=== PATIENT | female | born 2000 | race Caucasian/White ===

== ENCOUNTER 2019-07-29 19:19 | Emergency (ER) | payer MEDICAID, OTHER ==
[~2019-07-29] VITALS: Ht 160 cm; Wt 75.7 kg
[2019-07-29 19:22] VITALS: BP 130/72
--- NOTE | 2019-07-29 19:22 | NUR ---
PT AMBULATED WITH STEADY GAIT FROM [facility] TO [facility]. ALER TO NAME, PLACE, TIME, AND EVENT.
--- NOTE | 2019-07-29 19:28 | NUR ---
PT AMBULTAED TO THE LOBBY WITH VSS.
--- NOTE | 2019-07-29 21:28 | NUR ---
WHEEL CHAIR ASSISTED FROM CT TO BED 12.
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
[2019-07-29] MEDS ORDERED: KETOROLAC 60 MG/2 ML VIAL IM ONE (22:05)
[2019-07-29] MEDS ORDERED: ONDANSETRON 4 MG ODT PO ONE (22:05)
--- NOTE | 2019-07-29 23:30 | NUR ---
Patient discharged with v/s stable. Written and verbal after care instructions given and explained BY DR RAMÍREZ. Patient alert, oriented and verbalized understanding of instructions. Ambulatory with steady gait. All questions addressed prior to discharge BY DR RAMÍREZ. ID band removed. Patient advised to follow up with PMD. Rx of NAPROSYN given. Patient educated on indication of medication including possible reaction and side effects BY DR RAMÍREZ. Opportunity to ask questions provided and answered BY DR. RAMÍREZ.
[2019-07-29 23:33] VITALS: BP 128/76
== END 2019-07-29 23:30 | disposition home or self-care (01) ==
LOC: MED 19:19
DX: S30.1XXA Contusion of abdominal wall, initial encounter (principal); J45.909 Unspecified asthma, uncomplicated; V89.2XXA Person injured in unspecified motor-vehicle accident, traffic, initial encounter; Y93.89 Activity, other specified; Y92.89 Other specified places as the place of occurrence of the external cause; Y99.8 Other external cause status
CPT/HCPCS: 74176; 81025; 96372; 99284; J1885; Q0162

== ENCOUNTER 2020-02-03 19:29 | Emergency (ER) | payer OTHER ==
[~2020-02-03] VITALS: Ht 160 cm; Wt 81.2 kg
[2020-02-03 19:34] VITALS: BP 95/49
[2020-02-03] MEDS ORDERED: ONDANSETRON 4 MG ODT PO ONE (20:05)
[2020-02-03] MEDS ORDERED: ALUMINUM HYD/MAG/SIMETHICONE 30 ML UDC PO ONE (20:15)
[2020-02-03] MEDS ORDERED: LIDOCAINE VISCOUS 2% 20 ML UDC PO ONE (20:15)
[2020-02-03] MEDS ORDERED: DICYCLOMINE HCL LIQUID 10 MG/5 ML UDC PO ONE (20:15)
[2020-02-03 20:45] VITALS: BP 121/72
== END 2020-02-03 20:45 | disposition home or self-care (01) ==
LOC: MED 19:29
DX: K29.70 Gastritis, unspecified, without bleeding (principal); J45.909 Unspecified asthma, uncomplicated
CPT/HCPCS: 81002; 81025; 99284; Q0162

== ENCOUNTER 2020-05-12 19:48 | Emergency (ER) | payer OTHER ==
[~2020-05-12] VITALS: Ht 160 cm; Wt 76.2 kg
[2020-05-12 19:52] VITALS: BP 120/77
[2020-05-12] MEDS ORDERED: DICYCLOMINE HCL LIQUID 20 MG, ALUMINUM HYD/MAG/SIMETHICONE 30 ML, LIDOCAINE VISCOUS 2% ... PO ONE ×3 (21:20)
[2020-05-12] MEDS ORDERED: ALUMINUM HYD/MAG/SIMETHICONE 30 ML UDC ONE (21:22)
[2020-05-12] MEDS ORDERED: LIDOCAINE VISCOUS 2% 20 ML UDC ONE (21:22)
[2020-05-12] MEDS ORDERED: DICYCLOMINE HCL LIQUID 10 MG/5 ML UDC ONE (21:22)
[2020-05-12 21:40] VITALS: BP 120/77
== END 2020-05-12 21:40 | disposition home or self-care (01) ==
LOC: MED 19:48
DX: R10.13 Epigastric pain (principal); J45.909 Unspecified asthma, uncomplicated
CPT/HCPCS: 81002; 81025; 99283

== ENCOUNTER 2022-02-26 21:19 | Inpatient (IN) | payer MEDICAID, OTHER ==
[~2022-02-26] VITALS: Ht 157.5 cm; Wt 84.4 kg
[2022-02-26 21:22] VITALS: BP 122/89
--- NOTE | 2022-02-26 22:06 | NUR ---
Blood for labwork drawn from left arm per golf course equipment operator. Patient tolerated well.
[2022-02-26 22:23] LABS: BASOPHILS # (AUTO) 0.1 K/uL (0.00-0.22); BASOPHILS % (AUTO) 0.7 % (0.0-2.0); EOSINOPHILS # (AUTO) 0.2 K/uL (0-0.4); HEMATOCRIT 38.1 % (36-48); HEMOGLOBIN 12.7 g/dL (12.0-16.0); LYMPHOCYTES # (AUTO) 3.9 K/uL (2.5-16.5); LYMPHOCYTES % (AUTO) 33.2 % (20.5-51.1); MEAN CORPUSCULAR HEMOGLOBIN 31 pg (27-31); MEAN CORPUSCULAR HGB CONC 33 g/dL (33-37); MEAN CORPUSCULAR VOLUME 92.6 fL (80-94); MONOCYTES # (AUTO) 0.7 K/uL (0.8-1.0); MONOCYTES % (AUTO) 6.3 % (1.7-9.3); NEUTROPHILS # (AUTO) 6.7 K/uL (1.8-7.7); NEUTROPHILS % (AUTO) 57.8 % (42.2-75.2); PLATELET COUNT (AUTO) 320 K/uL (140-450); RED BLOOD CELL COUNT(AUTO) 4.12 MIL/uL (4.20-5.40); RED CELL DISTRIBUTION WIDTH 14.1 % (11.6-13.7); WHITE BLOOD COUNT (AUTO) 11.6 K/uL (4.8-10.8)
[2022-02-26 22:40] LABS: ALBUMIN 3.7 g/dL (3.4-5.0); ANION GAP 12.7 (8-16); CARBON DIOXIDE 24.8 mmol/L (21-32); CREATININE 0.6 mg/dL (0.6-1.3); POTASSIUM 3.5 mmol/L (3.5-5.1); TOTAL BILIRUBIN 0.2 mg/dL (0.0-1.0)
--- NOTE | 2022-02-26 23:37 | NUR ---
Patient returned from US and placed on bed 4.
--- NOTE | 2022-02-27 00:03 | NUR ---
PT BIB SELF WITH COMPLAINT OF VAGINAL BLEEDING FOR 1 DAY, STATES SHE NOTICED BLOOD CLOTS IN HER PAD WITH LOWER LEFT ABDOMINAL PAIN. PT SATES SHE HAS HAD IRREGULAR MENSTRUAL PERIODS AND HAS BEEN SEEN BY A SPECIALIST, CURRENTLY AWAITING FOR ABDOMINAL AND TRANSVAGINAL US RESULTS THAT WERE DONE PREVIOUSLY. PT STATES SHE HAD HER LMP 02/21/22 FOR ABOUT THREE DAYS AND THE BLEEDING RETURNED YESTERDAY. PMH: NONE MEDICATIONS: NONE
[2022-02-27] MEDS ORDERED: NACL 0.9% 1,000 ML IV ONE (00:40)
[2022-02-27] MEDS ORDERED: HYDROcodone/APAP 5/325 MG 1 TAB TAB PO PRN (01:00)
[2022-02-27] MEDS ORDERED: ONDANSETRON 4 MG/2 ML VIAL IVP PRN (01:00)
[2022-02-27] MEDS ORDERED: MORPHINE SULFATE 4 MG/ML SYR IVP PRN (01:00)
--- NOTE | 2022-02-27 02:40 | NUR ---
Patient will be admitted to care of DENZEL THAYER. Admited to [facility]. Will go to [facility]. Belongings list completed. Report to GONZALO.
[2022-02-27 03:00] VITALS: BP 112/64
--- NOTE | 2022-02-27 03:00 | NUR ---
RECEIVED PATIENT FROM ER. PATIENT ARRIVE TO THE UNIT VIA WHEELCHAIR ESCORTED BY ONE ER STAFF. AWAKE, ALERT AND VERBALLY RESPONSIVE. PATIENT WITH VAGINAL BLEEDING AND VERBALIZED OF MINIMAL PAIN OR DISCOMFORT ON ABDOMEN. PATIENT INDEPENDENTLY TRANSFER HERSELF FROM WHEELCHAIR TO THE BED WITH SUPERVISION OR ASSISTANCE NEEDED. PLACE PATIENT COMFORTABLY ON THE BED.
--- NOTE | 2022-02-27 06:00 | NUR ---
PATIENT SLEEP WELL, SHE DENIED OF PAIN. IV SITE ON RIGHT ARM AC INTACT AND PATENT. RUNNING NORMAL SALINE AT KVO.
--- NOTE | 2022-02-27 07:15 | NUR ---
ENDORSE TO DAY SHIFT NURSE FOR CONTINUITY OF CARE. PATIENT IS ON STABLE CONDITION.
--- NOTE | 2022-02-27 07:51 | NUR ---
received report from night nurse, pt is in bed , looks comfortable no sob [email or web address]
[2022-02-27] MEDS: metroNIDAZOLE 500 MG/NS PREMIX 100 ML IV SCH ×3 (08:00→21:54)
--- NOTE | 2022-02-27 08:06 | NUR ---
PATIENT HAS BEEN SCREENED AND CATEGORIZED LOW NUTRITION RISK. PATIENT WILL BE SEEN WITHIN 7 DAYS OF ADMISSION. 02/27/22-03/05/[address]
[2022-02-27] MEDS ORDERED: guaiFENesin DM 200/20 MG-10 ML 10 ML UDC PO PRN (08:10)
[2022-02-27] MEDS ORDERED: ZOLPIDEM 5 MG TAB PO PRN (08:10)
[2022-02-27] MEDS ORDERED: ACETAMINOPHEN 325 MG TAB PO PRN (08:10)
[2022-02-27] MEDS ORDERED: DOCUSATE SODIUM 100 MG GELCAP PO PRN (08:10)
[2022-02-27] MEDS ORDERED: POTASSIUM CHLORIDE 10 MEQ TABER PO PRN (08:10)
--- NOTE | 2022-02-27 09:35 | NUR ---
got report pt in regular diet, but there is order entered at 0808 for NPO, pt ate half of breakfast then, notified the DR and put NPO wilver and notified patient not to eat.[email or web address]
[2022-02-27] MEDS: DEXT 5% /NACL 0.9% 1,000 ML IV SCH ×2 (09:56→17:09)
[2022-02-27] MEDS: PANTOPRAZOLE 40 MG TABEC PO SCH (09:56)
[2022-02-27 10:21] VITALS: BP 105/56
[2022-02-27 10:22] VITALS: BP 105/56
[2022-02-27 10:24] LABS: PROTHROMBIN TIME 10.6 secs (10.8-13.4)
[2022-02-27 10:30] LABS: AMYLASE 41 U/L (25-115); FREE T4 (FREE THYROXINE) 0.82 ng/dL (0.76-1.46); LIPASE 75 U/L (73-393); MAGNESIUM 1.9 mg/dL (1.8-2.4); PHOSPHORUS 4.6 mg/dL (2.5-4.9); THYROID STIMULATING HORMONE 1.56 uIU/mL (0.34-3.74)
--- NOTE | 2022-02-27 14:08 | NUR ---
PATIENT HAD SPOT BLEEDING SINCE IN THE MORNING CONTINUED TO ASSESS AND CHECK FOR BLEEDING VIAL VAGINAL.[email or web address]
[2022-02-27 15:10] LABS: APPEARANCE,URINE CLEAR (CLEAR); BILIRUBIN,URINE NEGATIVE (NEGATIVE); BLOOD, URINE 3+ (NEGATIVE); COLOR,URINE YELLOW (YELLOW); LEUKOCYTE ESTERASE ,URINE NEGATIVE (NEGATIVE); NITRITE, URINE NEGATIVE (NEGATIVE); UGLUCOSE NEGATIVE (NEGATIVE)
--- NOTE | 2022-02-27 15:41 | NUR ---
PT IS IN BED, NO JOELLE OF DISCOMFORT, VISITOR AT BED SIDE, IV FLUID IS INFUSING ORDERED.[email or web address]
[2022-02-27 16:00] VITALS: BP 104/60
--- NOTE | 2022-02-27 16:40 | NUR ---
PATIENT REPORT THAT SHE JUST CHANGED PAD WITH FULL BLOOD. NO PAIN, IV MAINTAINED ORDERED, PROVIDED COMFORT MEASURES. [email or web address]
[2022-02-27 18:26] LABS: RBC,URINE 20-50 /HPF (0-5); WBC,URINE NONE SEEN /HPF (0-5)
[2022-02-27 19:02] LABS: BARBITURATE, URINE NEGATIVE ng/ml (NEG <=200); BENZODIAZEPINE, URINE NEGATIVE ng/mL (NEG <=200); CANNABINOID, URINE NEGATIVE ng/mL (NEG <=50); COCAINE, URINE NEGATIVE ng/mL (NEG <=300); OPIATE, URINE NEGATIVE ng/mL (NEG <=2000); PHENCYCLIDINE SCREEN,URINE NEGATIVE ng/mL (NEG <=25)
--- NOTE | 2022-02-27 19:15 | NUR ---
RECEIVED BEDSIDE REPORT FROM DAY SHIFT NURSE FOR CONTINUITY OF PATIENT CARE.
[2022-02-27 20:00] VITALS: BP 98/62
--- NOTE | 2022-02-27 21:00 | NUR ---
PATIENT WENT TO RESTROOM, SHE VERBALIZED NO BLEEDING.
[2022-02-27 22:13] LABS: CHOL/HDL RATIO 4.1 (1-4.5); HDL CHOLESTEROL 26 mg/dL (40-60); LDL (CALC) 69 mg/dL (60-100); TRIGLYCERIDES 60 mg/dL (30-150)
[2022-02-28] VITALS: BP 98/62
--- NOTE | 2022-02-28 00:15 | NUR ---
PATIENT ASLEEP BUT AROUSABLE ON STIMULI. PATIENT DENIES OF PAIN AND BLEEDING. IV FLUID D5NS IS INTACT AND PATENT.
[2022-02-28] MEDS: DEXT 5% /NACL 0.9% 1,000 ML IV SCH ×3 (00:50→16:56)
--- NOTE | 2022-02-28 02:30 | NUR ---
PATIENT USED RESTROOM, VERBALIZED OF MILD TOLERABLE PAIN. PATIENT STATED SLIGHT BLEEDING ON THE PAD AND NO NEED TO CHANGE.
[2022-02-28 04:00] VITALS: BP 102/58
--- NOTE | 2022-02-28 04:00 | NUR ---
PATIENT VERBALIZES OF PAIN ON BILATERAL ARMS, MORE DISCOMFORT ON THE ARM OF IV SIDE. IV SIDE INTACT AND PATENT, NO S/S OF INFECTION OR PHLEBITIS.
[2022-02-28] MEDS: metroNIDAZOLE 500 MG/NS PREMIX 100 ML IV SCH ×3 (05:00→20:23)
[2022-02-28 06:19] LABS: T4 (THYROXINE) 5.1 ug/dL (4.5-12.0)
[2022-02-28 07:00] LABS: BASOPHILS # (AUTO) 0.1 K/uL (0.00-0.22); BASOPHILS % (AUTO) 0.7 % (0.0-2.0); EOSINOPHILS # (AUTO) 0.2 K/uL (0-0.4); EOSINOPHILS % (AUTO) 2.1 % (0.0-4.0); HEMATOCRIT 30.6 % (36-48); HEMOGLOBIN 10.4 g/dL (12.0-16.0); LYMPHOCYTES # (AUTO) 3.1 K/uL (2.5-16.5); LYMPHOCYTES % (AUTO) 33.7 % (20.5-51.1); MEAN CORPUSCULAR HEMOGLOBIN 32 pg (27-31); MEAN CORPUSCULAR HGB CONC 34 g/dL (33-37); MEAN CORPUSCULAR VOLUME 94.6 fL (80-94); MONOCYTES # (AUTO) 0.6 K/uL (0.8-1.0); MONOCYTES % (AUTO) 6.3 % (1.7-9.3); NEUTROPHILS # (AUTO) 5.2 K/uL (1.8-7.7); NEUTROPHILS % (AUTO) 57.2 % (42.2-75.2); PLATELET COUNT (AUTO) 262 K/uL (140-450); RED BLOOD CELL COUNT(AUTO) 3.23 MIL/uL (4.20-5.40); RED CELL DISTRIBUTION WIDTH 14.3 % (11.6-13.7); WHITE BLOOD COUNT (AUTO) 9.1 K/uL (4.8-10.8)
[2022-02-28 07:07] LABS: ANION GAP 12.1 (8-16); CARBON DIOXIDE 24.3 mmol/L (21-32); CREATININE 0.6 mg/dL (0.6-1.3); POTASSIUM 3.4 mmol/L (3.5-5.1)
--- NOTE | 2022-02-28 07:15 | NUR ---
PT ASLEEP, ENDORSED TO DAY SHIFT NURSE FOR PT CONTINUITY OF CARE. PATIENT IS ON NPO, RUNNING IVF OF D5NS VIA RIGHT ANTECUBITAL.
--- NOTE | 2022-02-28 07:20 | NUR ---
RECEIVED BEDSIDE REPORT FROM DECKHAND ENGINEER NURSE FOR CONTINUITY OF CARE. PT IS AWAKE AND ALERT. A&OX4. ON RA WITH BREATHING UNLABORED. AMBULATORY INDEPENDENTLY. DENIES PAIN AT THIS TIME. SKIN IS WARM, DRY, AND INTACT. IV IS IN PLACE INFUSING FLUIDS ORDERED. PT IS STABLE. PLAN OF CARE DISCUSSED.
[2022-02-28] MEDS ORDERED: MORPHINE SULFATE 2 MG/ML SYR IVP PRN (07:25)
[2022-02-28 08:00] VITALS: BP 102/67
[2022-02-28] MEDS: PANTOPRAZOLE 40 MG TABEC PO SCH (08:41)
--- NOTE | 2022-02-28 08:41 | NUR ---
PT WAS GIVEN KDUR 40 MEQ FOR POTASSIUM LEVEL OF 3.4. EDUCATION PROVIDED AND PT VERBALIZED UNDERSTANDING.
--- NOTE | 2022-02-28 09:14 | NUR ---
RESIDENT OF DR. MARTIN PRESENT AT BEDSIDE, ASSESSING PT. SHE STATED THEY WILL WAIT FOR DR. MARTIN TO SEE THE PT LATER TODAY TO DECIDE THE PLAN.
--- NOTE | 2022-02-28 10:00 | NUR ---
PT IS AWAKE AND ALERT. PT STATES SHE HAS PAIN IN THE ABD AT A SCALE OF 3/10 BUT SAYS IT IS TOLERABLE. BREATHING IS UNLABORED ON RA. WILL CONTINUE TO MONITOR.
[2022-02-28] MEDS: HYDROcodone/APAP 7.5/325 MG 1 TAB PO PRN ×3 (12:55→22:16)
--- NOTE | 2022-02-28 12:55 | NUR ---
PT STATES SHE HAS PAIN IN HER ARMS BILATERALLY AND ABD AT A SCALE OF 6/10. PT WAS GIVEN NORCO FOR PAIN. WILL CONTINUE TO MONITOR.
--- NOTE | 2022-02-28 15:08 | NUR ---
DC PLANNIN YRS OLD FEMALE PATIENT WAS ADMITTED FROM HOME WITH A DX OF ECTOPIC . PATIENT HAS NO MEDICAL HISTORY. TRANSVAGINAL US SHOWED CERVICAL ECTOPIC . ADMINISTERED IVF, AND IV PAIN MEDS CONSULTED WITH DR NUÑEZ QUALITY ASSURANCE SUPERVISOR TRIM. DC PLAN TO GO HOME WHEN STABLE. CM TO FOLLOW
--- NOTE | 2022-02-28 15:28 | NUR ---
PT IS ASLEEP. CHEST RISE AND FALL SYMMETRICAL. IV IS PATENT AND INFUSING. NO DISTRESS AT THIS TIME. PT STABLE.
--- NOTE | 2022-02-28 15:30 | NUR ---
DC PLANNING PATIENT IS A 21-YEAR-OLD FEMALE ADMITTED ON 03/14/22 AT [facility]/ER DUE TO COMPLAINTS OF UNUSUAL VAGINAL BLEEDING,NAUSEA AND VOMITING. SW MET WITH PATIENT AT BEDSIDE TO DISCUSS AND GATHER PATIENT'S COLLATERAL INFORMATION. PATIENT REPORTED LIVING AT HOME WITH HER FRIEND AND STATED HAVING PLENTY OF SUPPORT FROM HER FAMILY. PATIENT REPORTED BEEN ACTIVE AND INDEPENDENT AT HOME. PATIENT REPORTED THAT HER EMERGENCY CONTACT AND MEDICAL DECISION MAKER IS HER MOTHER ALLY WARREN . PATIENT STATED NOT HAVING ADVANCE DIRECTIVES AND WAS NOT INTERESTED ON GETTING INFORMATION FORMS PROVIDED BY SW AT THE TIME OF VISIT. PATIENT REPORTED NOT HAVING OR NEEDING DME AND NOT HAVING ANY ISSUES WITH GETTING OR TAKING ANY MEDICATIONS. PATIENT STATED THAT SHE WILL HAVE PRESCRIPTION MEDICATIONS BE SEND IF SHE NEEDS THEM TO HER [facility] IN [place]. SW EXPLAINED TO PATIENT THE NEED TO FOLLOW UP WITH AN APPOINTMENT WITH-IN 5-7 DAYS WITH HER PCP AFTER DISCHARGE FROM [facility]. PATIENT AGREED AND STATED THAT SHE DID NOT HAVE INSURANCE AT THE MOMENT BUT WILL BE APPLYING FOR MEDI-ANETTE AND WILL GO TO HER DOCTOR. SW PROVIDED PATIENT WITH RESOURCES TO EMERGENCY RESOURCES WITH INFORMATION FOR DPSS, AND A LIST OF LOW INCOME CLINICS IN HER AREA FOR PATIENT TO FOLLOW UP WITH AN APPOINTMENT AFTER SHE DISCHARGES FROM [facility]. PATIENT STATED THAT HER MOTHER WILL BE ASSISTING WITH TRANSPORTATION BACK HOME WHEN SHE IS READY FOR DISCHARGE. SW WILL FOLLOW UP WITH PATIENT NEEDED.
[2022-02-28 16:00] VITALS: BP 110/57
--- NOTE | 2022-02-28 18:02 | NUR ---
PT IS SLEEPING. NO DISTRESS NOTED. CHEST RISE AND FALL SYMMETRICAL. PT STABLE.
[2022-02-28] MEDS: ONDANSETRON 4 MG/2 ML VIAL IM/IVP PRN ×2 (18:15→22:16)
--- NOTE | 2022-02-28 18:15 | NUR ---
PT STATES SHE HAS PAIN IN HER LOWER ABD AT A SCALE OF 6/10. PT WAS GIVEN NORCO FOR PAIN. PT WAS ALSO GIVEN ZOFRAN FOR NAUSEA STATED BY PT. WILL MONITOR.
--- NOTE | 2022-02-28 19:30 | NUR ---
ENDORSED PT TO SCROLL ASSEMBLER NURSE FOR CONTINUITY OF CARE. PT IS STABLE. PLAN OF CARE DISCUSSED.
--- NOTE | 2022-02-28 19:36 | NUR ---
RECEIVED BEDSIDE REPORT FROM DAY SHIFT RN FOR CONTINUITY OF CARE. PT IS AWAKE. NOT IN ANY DISTRESS. PT IS AAOX4. PT HAS RIGHT HAND 22 GAUGE WITH D5 NS 120 ML/HR. PT IS ON RA BREATHING EVEN AND UNLABORED. CALL LIGHT WITHIN REACH. ALL SAFETY MEASURES TAKEN. WILL CONTINUE TO MONITOR THE PT.
--- NOTE | 2022-02-28 20:25 | NUR ---
ALL DUE MEDS GIVEN. NO ADVERSE REACTION NOTED. WILL CONTINUE TO MONITOR THE PT.
--- NOTE | 2022-03-01 00:17 | NUR ---
PT COMPLAINING OF ARM PAIN 05/01. PT WANTED MORPHINE AND WAS GIVEN PER MD ORDER. NO ADVERSE EFFECT NOTED. ALL SAFETY PRECAUTIONS TAKEN. WILL CONTINUE TO MONITOR THE PT.
[2022-03-01] MEDS: DEXT 5% /NACL 0.9% 1,000 ML IV SCH ×4 (01:50→21:20)
--- NOTE | 2022-03-01 03:31 | NUR ---
PT IS SLEEPING COMFORTABLY IN BED. PT IS NOT IN ANY DISTRESS. BREATHING EVEN AND UNLABORED. CALL LIGHT WITHIN REACH. ALL SAFETY MEASURES TAKEN. WILL CONTINUE TO MONITOR THE PT.
[2022-03-01 04:00] VITALS: BP 100/62
[2022-03-01] MEDS: metroNIDAZOLE 500 MG/NS PREMIX 100 ML IV SCH ×3 (04:51→21:20)
--- NOTE | 2022-03-01 06:04 | NUR ---
PT IS SLEEPING COMFORTABLY IN BED. PT IS NOT IN ANY DISTRESS. BREATHING EVEN AND UNLABORED. IVF RUNNING PER MD ORDER. CALL LIGHT WITHIN REACH. ALL SAFETY MEASURES TAKEN. WILL CONTINUE TO MONITOR THE PT.
[2022-03-01 06:53] LABS: BASOPHILS % (AUTO) 0.5 % (0.0-2.0); EOSINOPHILS # (AUTO) 0.1 K/uL (0-0.4); EOSINOPHILS % (AUTO) 1.6 % (0.0-4.0); HEMATOCRIT 29.5 % (36-48); LYMPHOCYTES # (AUTO) 2.3 K/uL (2.5-16.5); LYMPHOCYTES % (AUTO) 28.8 % (20.5-51.1); MEAN CORPUSCULAR HEMOGLOBIN 32 pg (27-31); MEAN CORPUSCULAR HGB CONC 34 g/dL (33-37); MEAN CORPUSCULAR VOLUME 93.9 fL (80-94); MONOCYTES # (AUTO) 0.4 K/uL (0.8-1.0); MONOCYTES % (AUTO) 5.4 % (1.7-9.3); NEUTROPHILS # (AUTO) 5.2 K/uL (1.8-7.7); NEUTROPHILS % (AUTO) 63.7 % (42.2-75.2); PLATELET COUNT (AUTO) 193 K/uL (140-450); RED BLOOD CELL COUNT(AUTO) 3.14 MIL/uL (4.20-5.40); WHITE BLOOD COUNT (AUTO) 8.1 K/uL (4.8-10.8)
[2022-03-01 06:54] LABS: ANION GAP 9.9 (8-16); CARBON DIOXIDE 24.5 mmol/L (21-32); CREATININE 0.5 mg/dL (0.6-1.3); POTASSIUM 4.4 mmol/L (3.5-5.1)
--- NOTE | 2022-03-01 07:15 | NUR ---
RECEIVED BEDSIDE REPORT FROM RECYCLING PROGRAM MANAGER NURSE FOR CONTINUITY OF CARE. PT IS AWAKE AND ALERT. ON RA WITH BREATHING UNLABORED. AMBULATORY INDEPENDENTLY. SKIN IS WARM, DRY, AND INTACT. RIGHT HAND 22 GAUGE INFUSING FLUIDS. PT IS STABLE. PLAN OF CARE DISCUSSED.
--- NOTE | 2022-03-01 07:20 | NUR ---
ENDORSED PT TO DAY SHIFT RN FOR CONTINUITY OF CARE. ALL NEEDS MET. PT IS STABLE.
[2022-03-01 08:00] VITALS: BP 98/51
--- NOTE | 2022-03-01 08:21 | NUR ---
RECEIVED VERBAL ORDER FROM DR. HAN TO PLACE PT ON REGULAR DIET THERE WILL NO PROCEDURE SCHEDULED OF RIGHT NOW PER DR. MARTIN.
[2022-03-01] MEDS: HYDROcodone/APAP 7.5/325 MG 1 TAB PO PRN (08:29)
[2022-03-01] MEDS: PANTOPRAZOLE 40 MG TABEC PO SCH (08:29)
--- NOTE | 2022-03-01 10:48 | NUR ---
ROUNDED ON PT. SHE IS ASLEEP. NO DISTRESS NOTED. CHEST RISE AND FALL SYMMETRICAL. IV FLUID BAG CHANGED AND NO INFILTRATION IN IV NOTED.
--- NOTE | 2022-03-01 13:00 | NUR ---
PT IS AWAKE AND ALERT. DENIES ANY NAUSEA OR PAIN. PT ATE LUNCH AND TOLERATED IT WELL. NO DISTRESS NOTED.
--- NOTE | 2022-03-01 13:59 | NUR ---
MESSAGED DR. MATRIN INQUIRING ABOUT THE METHOTREXATE HE PREVIOUSLY MENTIONED HE WANTED TO START TODAY 03/01/22 ON SHIFT CHANGE AT BEDSIDE WITH THE PATIENT AND ME, NURSE. WILL WAIT FOR RESPONSE BACK. Addendum: 03/01/22 at 1401 by Sana Multani RN NO CURRENT MEDICATION ORDER FOR METHOTREXATE NOTED.
--- NOTE | 2022-03-01 14:44 | NUR ---
DR. MARTIN MESSAGED BACK TO ASK DR. HAN TO CALL HIM. PROVIDED THE PHONE NUMBER TO DR. HAN AND ASKED HIM TO CALL DR. MARTIN.
[2022-03-01 16:00] VITALS: BP 109/66
--- NOTE | 2022-03-01 16:08 | NUR ---
PT IS AWAKE AND STABLE. DENIES ANY PAIN AT THIS TIME. SITTING UP IN BED WITH NO DISTRESS. BREATHING IS UNLABORED ON RA. IV IS PATENT AND INTACT.
--- NOTE | 2022-03-01 18:56 | NUR ---
PT IS STABLE. NO DISTRESS AT THIS TIME. SITTING UP IN BED WITH NO PAIN OR RESP. DISTRESS. WILL ENDORSE TO SPOOLING SUPERVISOR NURSE FOR CONTINUITY OF CARE.
--- NOTE | 2022-03-01 19:10 | NUR ---
RECEIVED REPORT FROM AM NURSE FOR CONTINUITY OF CARE. PT SITTING UP IN BED RR EVEN AND UNLABORED WITH EQUAL CHEST RISE. C/O N/V NO EMESIS NOTED. ZOFRAN 4MG/2ML IVP GIVEN WITH RELIEF. SKIN INTACT. IV R HAND 22G PATENT. FLAGYL INFUSED WITHOUT PROBLEMS. ALL SAFETY MEASURES IN PLACE. WILL CONTINUE TO MONITOR.
[2022-03-01] MEDS: ONDANSETRON 4 MG/2 ML VIAL IM/IVP PRN (19:42)
--- NOTE | 2022-03-02 02:00 | NUR ---
PT SLEPT FITFULLY. C/O INSOMNIA. RECEIVED AMBIEN 5MG PO FOR INSOMNIA. EFFECTIVE, SLEEPING AFTER 15 MINUTES.
--- NOTE | 2022-03-02 02:11 | NUR ---
DR. MARTIN ORDERED PELVIC ULTRASOUND NON OB FOR VAGINAL BLEEDING FOR 03/02/2022. PT WILL BE KEPT NPO UNTIL AFTER TEST. PT AWARE AND VERBALIZED UNDERSTANDING.
[2022-03-02 04:00] VITALS: BP 112/68
[2022-03-02] MEDS: metroNIDAZOLE 500 MG/NS PREMIX 100 ML IV SCH ×2 (04:19→13:00)
[2022-03-02 06:50] LABS: BASOPHILS % (AUTO) 0.6 % (0.0-2.0); EOSINOPHILS # (AUTO) 0.1 K/uL (0-0.4); EOSINOPHILS % (AUTO) 1.5 % (0.0-4.0); HEMATOCRIT 26.9 % (36-48); HEMOGLOBIN 9.1 g/dL (12.0-16.0); LYMPHOCYTES # (AUTO) 2.7 K/uL (2.5-16.5); MEAN CORPUSCULAR HEMOGLOBIN 32 pg (27-31); MEAN CORPUSCULAR HGB CONC 34 g/dL (33-37); MEAN CORPUSCULAR VOLUME 93.5 fL (80-94); MONOCYTES # (AUTO) 0.6 K/uL (0.8-1.0); MONOCYTES % (AUTO) 6.8 % (1.7-9.3); NEUTROPHILS # (AUTO) 5.3 K/uL (1.8-7.7); NEUTROPHILS % (AUTO) 60.1 % (42.2-75.2); PLATELET COUNT (AUTO) 258 K/uL (140-450); RED BLOOD CELL COUNT(AUTO) 2.87 MIL/uL (4.20-5.40); RED CELL DISTRIBUTION WIDTH 14.3 % (11.6-13.7); WHITE BLOOD COUNT (AUTO) 8.8 K/uL (4.8-10.8)
[2022-03-02 07:01] LABS: ANION GAP 9.2 (8-16); CARBON DIOXIDE 26.5 mmol/L (21-32); CREATININE 0.6 mg/dL (0.6-1.3); POTASSIUM 3.7 mmol/L (3.5-5.1)
--- NOTE | 2022-03-02 07:30 | NUR ---
ENDORSED REPORT TO AM RN FOR CONTINUITY OF CARE. PT IS STABLE.
--- NOTE | 2022-03-02 07:55 | NUR ---
RECEIVED REPORT FROM NIGHT NURSE PT IN BED RESTING IV FLUID INFUSING.[id number]
[2022-03-02 08:00] VITALS: BP 149/90
[2022-03-02] MEDS: PANTOPRAZOLE 40 MG TABEC PO SCH (09:51)
[2022-03-02] MEDS: DEXT 5% /NACL 0.9% 1,000 ML IV SCH (11:23)
[2022-03-02] MEDS ORDERED: MISOPROSTOL 200 MCG TAB PO SCH (13:00)
[2022-03-02] MEDS: HYDROcodone/APAP 7.5/325 MG 1 TAB PO PRN (15:21)
[2022-03-02 16:42] VITALS: BP 133/79
--- NOTE | 2022-03-02 18:36 | NUR ---
PT DISCHARGED HOME, DISCHARGE INSTRUCTION GIVEN, IV AND ID BAND REMOVED, ESCORTED TO THE CAR BY Kyle HUSTON
== END 2022-03-02 18:30 | disposition home or self-care (01) | DRG 566 ==
LOC: MED 21:19 → MMU 02-27 01:02 → MTU 02-27 01:42
PROVIDERS: ADMIT Hospitalist; ATTEND Hospitalist
PROC: 10A07ZX Abortion of Products of Conception, Abortifacient, Via Natural or Artificial Opening (ICD-10-PCS; principal; 2022-02-28)
DX: O00.80 Other ectopic pregnancy without intrauterine pregnancy (principal); E87.8 Other disorders of electrolyte and fluid balance, not elsewhere classified; D62 Acute posthemorrhagic anemia; O99.281 Endocrine, nutritional and metabolic diseases complicating pregnancy, first trimester; O99.611 Diseases of the digestive system complicating pregnancy, first trimester; Z20.822 Contact with and (suspected) exposure to COVID-19; Z3A.01 Less than 8 weeks gestation of pregnancy
CPT/HCPCS: 36415; 71045; 76817; 80048; 80053; 80305; 81001; 82150; 83036; 83690; 83735; 83880; 84100; 84436; 84439; 84443; 84479; 84484; 84702; 85025; 85610; 85730; 86870; 86886; 86900; 86901; 87081; 93971; 96360; 99291; J2270; J2405; J3490; J7030; Q0092

== ENCOUNTER 2022-03-11 14:37 | Observation (INO) | payer MEDICAID ==
[~2022-03-11] VITALS: Ht 208.3 cm; Wt 82.6 kg
[2022-03-11 14:42] VITALS: BP 113/67
--- NOTE | 2022-03-11 15:30 | NUR ---
21 y/o female bib self from home, pt was sent from OBGYN office for possible admission for d&c. pt was admitted to hospital on 03/02/22 for ectopic and given cytotec. pt c/o moderate vaginal bleeding that started on 02/27/22 and still bleeding at this time, denies clots. skin is pink/warm/dry. a&o x4 with even and steady gait. lungs clear bl, heart rate even and regular. pt denies dysuria, hematuria, urinary frequency or retention. pt denies any fever, cp, sob, or cough at this time. pt states pain is 6/10 at this time. vss. patient positioned for comfort. hob elevated. bed down. ermd made aware of pt. lmp: 02/21/22 pmh: asthma nka
--- NOTE | 2022-03-11 15:39 | NUR ---
labs at bedside
[2022-03-11 15:53] LABS: BASOPHILS % (AUTO) 0.4 % (0.0-2.0); EOSINOPHILS # (AUTO) 0.1 K/uL (0-0.4); EOSINOPHILS % (AUTO) 1.9 % (0.0-4.0); HEMATOCRIT 24.8 % (36-48); HEMOGLOBIN 8.3 g/dL (12.0-16.0); LYMPHOCYTES # (AUTO) 1.9 K/uL (2.5-16.5); LYMPHOCYTES % (AUTO) 26.4 % (20.5-51.1); MEAN CORPUSCULAR HEMOGLOBIN 31 pg (27-31); MEAN CORPUSCULAR HGB CONC 33 g/dL (33-37); MEAN CORPUSCULAR VOLUME 92.1 fL (80-94); MONOCYTES # (AUTO) 0.4 K/uL (0.8-1.0); MONOCYTES % (AUTO) 5.8 % (1.7-9.3); NEUTROPHILS # (AUTO) 4.7 K/uL (1.8-7.7); NEUTROPHILS % (AUTO) 65.5 % (42.2-75.2); PLATELET COUNT (AUTO) 411 K/uL (140-450); RED BLOOD CELL COUNT(AUTO) 2.69 MIL/uL (4.20-5.40); RED CELL DISTRIBUTION WIDTH 14.3 % (11.6-13.7); WHITE BLOOD COUNT (AUTO) 7.2 K/uL (4.8-10.8)
[2022-03-11 16:01] LABS: BILIRUBIN,URINE 2+ (NEGATIVE); BLOOD, URINE 3+ (NEGATIVE); LEUKOCYTE ESTERASE ,URINE 2+ (NEGATIVE); NITRITE, URINE NEGATIVE (NEGATIVE); UGLUCOSE NEGATIVE (NEGATIVE)
[2022-03-11 16:08] LABS: APPEARANCE,URINE BLOODY (CLEAR); COLOR,URINE RED (YELLOW); RBC,URINE TOO NUMEROUS TO COUN /HPF (0-5)
[2022-03-11 16:16] LABS: ALBUMIN 3.5 g/dL (3.4-5.0); ANION GAP 8.1 (8-16); CARBON DIOXIDE 27.9 mmol/L (21-32); CREATININE 0.6 mg/dL (0.6-1.3); TOTAL BILIRUBIN 0.2 mg/dL (0.0-1.0)
--- NOTE | 2022-03-11 16:19 | NUR ---
Ultrasound at bedside.
--- NOTE | 2022-03-11 17:32 | NUR ---
Patient appears to be resting comfortably in bed. Vital Signs within normal limits. Respirations even and unlabored.
--- NOTE | 2022-03-11 18:27 | NUR ---
neema swabbed at this time
--- NOTE | 2022-03-11 18:32 | NUR ---
NPO AFTER 9 PM TONIGHT. SURGERY SCHEDULED AT 630 AM 03/12/[address] SINGH/NETTIE SUP
[2022-03-11] MEDS ORDERED: LACTATED RINGERS 1,000 ML IV STA (18:34)
[2022-03-11 19:21] LABS: PROTHROMBIN TIME 10.6 secs (10.8-13.4)
--- NOTE | 2022-03-11 21:02 | NUR ---
EXPLOSIVE ORDNANCE DISPOSAL TECHNICIAN AT BEDSIDE
--- NOTE | 2022-03-11 21:25 | NUR ---
RECEIVED REPORT FROM ER. PATIENT ALERT ORIENTED X4. CAN VERBALIZE NEEDS AND WANTS. PATIENT IS AMBULATOR. IV ON RIGHT A/C PATENT, CLEAN AND INTACT. DENIES ANY PAIN/DISCOMFORT. PATIENT REQUESTED FOR A SLEEP PILL TO SLEEP BECAUSE OF AM PROCEDURE. NURSING WILL NOTIFY THE MD FOR ORDERS. ORIENTED TO ROOM AND HOSPITAL POLICIES. PATIENT WAS ABLE TO SIGN CONSENT FOR PROCEDURE TOMORROW AND THIS WILL BE ENDORSED TO AM SHIFT NURSE. PATIENT ON ROOM AIR WITH NO NOTED DIFFICULTIES BREATHING. CHEST RISING AND FALLING EVENLY. SIDE RAILS UP X 2 FOR SELF ADJUSTMENT. CALL LIGHT WITHIN REACH FOR ASSISTANCE AND NEEDS. PATIENT UNDERSTOOD ALL INSTRUCTIONS AND EDUCATION WELL. [email or web address]
--- NOTE | 2022-03-11 21:25 | NUR ---
Patient will be admitted to care of DR KHAN. Admited to Med/Surg. Will go to room 104B. Belongings list completed. Report to MODESTA PITTMAN.
[2022-03-11] MEDS ORDERED: ZOLPIDEM 5 MG TAB PO PRN (22:15)
--- NOTE | 2022-03-12 00:25 | NUR ---
MRSA NARES COLLECTED FOR LAB. PATIENT WENT BACK TO SLEEP AFTER COLLECTION. DENIES ANY PAIN/DISCOMFORT. SIDE RAILS UP X 2. BED AT ITS LOWEST POSITION. CALL LIGHT WITHIN REACH FOR ANY AND ALL ASSISTANCE. [email or web address]
[2022-03-12 01:09] VITALS: BP 102/55
--- NOTE | 2022-03-12 03:25 | NUR ---
PATIENT REMAINS ASLEEP IN BED. BED AT THE LOWEST LEVEL WITH SIDE RAILS X 2 FOR ADJUSTMENT. NO NOTED ACUTE DISTRESS OF RESPIRATORY. NO NOTED S/SX OF ACUTE PAIN/DISCOMFORT. CALL LIGHT WITHIN REACH FOR ALL NEEDS AND SUPPORT. [email or web address]
[2022-03-12 04:00] VITALS: BP 90/47
--- NOTE | 2022-03-12 06:41 | NUR ---
MEDICAL FRONT DESK COORDINATOR CAME FOR THE CONSENT. PATIENT ALREADY PREPPED FOR THE PROCEDURE. YESTERDAY DURING ADMISSION PATIENT STATED SHE PASSED ABOUT THREE CLOTS. THIS WAS ENDORSED TO THE SURGICAL NURSES. PATIENT WIPED HER WASHED HER LOWER EXTREMITY WITH CHLORA-PREP BEFORE THE PROCEDURE. PATIENT WAS TRANSFERRED OFF THE UNIT TO SURGERY. [email or web address].
--- NOTE | 2022-03-12 07:09 | NUR ---
ENDORSED TO SIMA BYERS FOR CONTINUITY OF CARE, PATIENT WAS TRANSFERRED TO SURGERY FOR PROCEDURE OD DILATION AND CURETTAGE. [email or web address]
[2022-03-12] MEDS ORDERED: fentaNYL citrate 0.05 MG/ML VIAL ONE (07:11)
[2022-03-12] MEDS ORDERED: PROPOFOL 200 MG/20 ML VIAL IV ONE (07:12)
[2022-03-12] MEDS ORDERED: ONDANSETRON 4 MG/2 ML VIAL ONE (07:26)
[2022-03-12] MEDS ORDERED: DEXAMETHASONE 4 MG/ML VIAL ONE (07:27)
--- NOTE | 2022-03-12 08:00 | NUR ---
PT IS STABLE, COVERING IV MED ORDER FOR INSURANCE OFFICE SUPERVISOR NARESH [id number]
[2022-03-12] MEDS: DOXYCYCLINE 200 MG in DEXTROSE 5% 250 ML IV SCH ×2 (08:10→08:30)
[2022-03-12] MEDS ORDERED: ONDANSETRON 4 MG/2 ML VIAL IVP PRN ×2 (08:10)
[2022-03-12] MEDS ORDERED: HYDROmorphone 1 MG/ML AMP IVP PRN (08:10)
[2022-03-12] MEDS ORDERED: oxyCODONE/APAP 5/325 MG 1 TAB TAB PO PRN (08:10)
[2022-03-12] MEDS ORDERED: diphenhydrAMINE 50 MG/ML VIAL IVP PRN ×2 (08:10)
[2022-03-12] MEDS ORDERED: MEPERIDINE 25 MG/ML SYR IVP PRN (08:10)
[2022-03-12] MEDS ORDERED: LACTATED RINGERS 1,000 ML IV SCH (08:10)
--- NOTE | 2022-03-12 09:12 | NUR ---
PATIENT HAS BEEN SCREENED AND CATEGORIZED LOW NUTRITION RISK. PATIENT WILL BE SEEN WITHIN 7 DAYS OF ADMISSION. 03/18/[address]
[2022-03-12 12:54] VITALS: BP 90/47
--- NOTE | 2022-03-12 12:54 | NUR ---
PT DISCHARGED HOME, IV LINE AND ID BAND REMOVED, PT LEFT THE UNIT WITHOUT DISCOMFORT VIA W\C .[email or web address]
== END 2022-03-12 16:08 | disposition home or self-care (01) ==
LOC: MED 14:37 → MTU 18:20
PROVIDERS: ADMIT Obstetrics & Gynecology; ATTEND Obstetrics & Gynecology
DX: O03.4 Incomplete spontaneous abortion without complication (principal); Z20.822 Contact with and (suspected) exposure to COVID-19; J45.909 Unspecified asthma, uncomplicated; Z67.90 Unspecified blood type, Rh positive
CPT/HCPCS: 36415; 59820; 71045; 76801; 80053; 81001; 84702; 85025; 85610; 85730; 86870; 86886; 86900; 86901; 87086; 87426; 99285; G0378; J1100; J2405; J2704; J3010; J3490; J7060; Q0092; 88305; G0379

== ENCOUNTER 2022-03-17 10:08 | Emergency (ER) | payer MEDICAID ==
[~2022-03-17] VITALS: Ht 157.5 cm; Wt 82.1 kg
[2022-03-17 10:14] VITALS: BP 121/76
--- NOTE | 2022-03-17 10:17 | NUR ---
PT AMBULATED TO BED 7 WITH STEADY GAIT
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
--- NOTE | 2022-03-17 10:39 | NUR ---
DR WEIR AT BEDSIDE FOR FURTHER EVAL
--- NOTE | 2022-03-17 10:48 | NUR ---
PT STATES THAT SHE "FEELS LIKE THERE IS WATER IN HER EAR" AND THAT SHE IS "UNDERWATER". STATES SLIGHT LOSS OF HEARING ON THE RIGHT EAR.
[2022-03-17] MEDS ORDERED: CIPR7.5S OT (11:01)
--- NOTE | 2022-03-17 11:10 | NUR ---
Patient discharged with v/s stable. Written and verbal after care instructions about otitis externa given and explained. Patient alert, oriented and verbalized understanding of instructions. Ambulatory with steady gait. All questions addressed prior to discharge. ID band removed. Patient advised to follow up with PMD. Rx of CIPRODEX OTIC SUSPENSION given. Patient educated on indication of medication including possible reaction and side effects. Opportunity to ask questions provided and answered.
--- NOTE | 2022-03-17 11:15 | NUR ---
The patient's care was reviewed and supervised by Tushar De Oliveira RN.
== END 2022-03-17 11:10 | disposition home or self-care (01) ==
LOC: MED 10:08
DX: H60.91 Unspecified otitis externa, right ear (principal)
CPT/HCPCS: 99283

== ENCOUNTER 2022-05-18 14:25 | Emergency (ER) | payer MEDICAID, OTHER ==
[~2022-05-18] VITALS: Ht 157.5 cm; Wt 83.5 kg
[~2022-05-18 14:25] MED LIST: CIPR7.5S OT
[2022-05-18 14:54] VITALS: BP 137/86
--- NOTE | 2022-05-18 15:02 | NUR ---
PT AMB TO BED 10
--- NOTE | 2022-05-18 15:05 | NUR ---
COVID ROBBY SWAB DONE.
--- NOTE | 2022-05-18 15:18 | NUR ---
EMT at bedside for EKG
--- NOTE | 2022-05-18 15:22 | NUR ---
RAD at bedside
--- NOTE | 2022-05-18 15:25 | NUR ---
21 y/o F BIB self from home c/o chest pain x 1 week, abdominal pain, nausea, dizziness, headache. Patient A&Ox4, ambulatory, states intermittent left and right sided chest pain 7/10, pressure/intermittent, non-radiating pain. Patient also states diffuse abdominal pain 6/10, tenderness noted to all quadrants. Patient states seen by PCP 2 days ago with abnormal CXR; seen at [facility] and discharged yesterday advising to hold Ibuprofen d/t gastritis. Patient reports PCP recently tested +COVID and concern d/t visit exposure. Denies fever, chills, vomiting, diarrhea, dysuria, SOB. respiratory clinician in place. Bed locked in lowest position, side rails x 1. PMH: gastritis Meds: denies NKDA Sx: D&C
[2022-05-18] MEDS ORDERED: NACL 0.9% 1,000 ML IV ONE (16:20)
[2022-05-18] MEDS ORDERED: ACETAMINOPHEN 325 MG TAB PO ONE (16:20)
--- NOTE | 2022-05-18 17:05 | NUR ---
Patient states + relief to symptoms; headache 12/30 and chest pain "going away a little bit" 04/01. playground monitor remains in place with IVF continued. VSS; RR even/unlabored. Bed locked in lowest position, side rails x 1.
[2022-05-18 17:10] LABS: BASOPHILS % (AUTO) 0.5 % (0.0-2.0); EOSINOPHILS # (AUTO) 0.1 K/uL (0-0.4); EOSINOPHILS % (AUTO) 1.6 % (0.0-4.0); HEMATOCRIT 40.5 % (36-48); HEMOGLOBIN 13.2 g/dL (12.0-16.0); LYMPHOCYTES # (AUTO) 2.3 K/uL (2.5-16.5); LYMPHOCYTES % (AUTO) 27.9 % (20.5-51.1); MEAN CORPUSCULAR HEMOGLOBIN 30 pg (27-31); MEAN CORPUSCULAR HGB CONC 33 g/dL (33-37); MEAN CORPUSCULAR VOLUME 90.3 fL (80-94); MONOCYTES # (AUTO) 0.5 K/uL (0.8-1.0); NEUTROPHILS # (AUTO) 5.3 K/uL (1.8-7.7); PLATELET COUNT (AUTO) 344 K/uL (140-450); RED BLOOD CELL COUNT(AUTO) 4.48 MIL/uL (4.20-5.40); RED CELL DISTRIBUTION WIDTH 14.3 % (11.6-13.7); WHITE BLOOD COUNT (AUTO) 8.3 K/uL (4.8-10.8)
--- NOTE | 2022-05-18 17:18 | NUR ---
Patient ambulated to restroom with steady/even gait.
[2022-05-18 17:32] LABS: ALBUMIN 3.6 g/dL (3.4-5.0); ANION GAP 9.3 (8-16); ASPARTATE AMINOTRANSFERASE 19 U/L (15-37); CARBON DIOXIDE 30.4 mmol/L (21-32); CHLORIDE 107 mmol/L (98-107); CREATININE 0.8 mg/dL (0.6-1.3); GFR ARICAN-AMERICAN 114 mL/min (>90); GLUCOSE 90 mg/dL (74-106); POTASSIUM 3.7 mmol/L (3.5-5.1); SODIUM SERUM 143 mmol/L (136-145); TOTAL BILIRUBIN 0.1 mg/dL (0.0-1.0); UREA NITROGEN, BLOOD 14 mg/dL (7-18)
[2022-05-18] MEDS ORDERED: IBUP-2213 PO (18:06)
--- NOTE | 2022-05-18 19:15 | NUR ---
IV removed, catheter intact and site benign. Applied folded 4x4 gauze and tape to stop bleeding.
[2022-05-18 19:25] VITALS: BP 110/83
--- NOTE | 2022-05-18 19:27 | NUR ---
Patient discharged with v/s stable. Written and verbal after care instructions given and explained. Patient alert, oriented and verbalized understanding of instructions. Ambulatory with steady gait. All questions addressed prior to discharge. ID band removed. Patient advised to follow up with PMD. Rx of Ibuprofen given. Patient educated on indication of medication including possible reaction and side effects. Opportunity to ask questions provided and answered. Work note, blood work, EKG, and CXR copies provided to pt.
== END 2022-05-18 19:27 | disposition home or self-care (01) ==
LOC: MED 14:25
DX: R07.9 Chest pain, unspecified (principal); Z20.822 Contact with and (suspected) exposure to COVID-19; R50.9 Fever, unspecified; R06.00 Dyspnea, unspecified; J45.909 Unspecified asthma, uncomplicated; F17.200 Nicotine dependence, unspecified, uncomplicated; Z79.899 Other long term (current) drug therapy
CPT/HCPCS: 71045; 80053; 84484; 84702; 85025; 87426; 93005; 96360; 99285; J7030; Q0092

== ENCOUNTER 2022-10-26 15:02 | Emergency (ER) | payer OTHER ==
[~2022-10-26] VITALS: Ht 157.5 cm; Wt 84.4 kg
[~2022-10-26 15:02] MED LIST changes: +IBUP-2213 PO
[2022-10-26 15:10] VITALS: BP 119/80
--- NOTE | 2022-10-26 15:12 | NUR ---
PT AMBULATED TO LOBBY. URINE COLLECTED
--- NOTE | 2022-10-26 15:12 | NUR ---
22/F WALKED IN C/O MID PELVIC PAIN ONSET 2 DAYS. PT WAS SEEN AT URGENT CARE 2 WKS AGO FOR LEFT SIDED PELVIC PAIN. PT REPORTS DYSURIA AT THIS TIME. DENIES HEMATURIA OR FLANK PAIN. AFEBRILE AT TRIAGE. AAO4, AMBULATORY, VITALS STABLE PMH: DENIES
--- NOTE | 2022-10-26 17:10 | NUR ---
URINE COLLECTED AND SENT TO LAB
[2022-10-26 17:24] LABS: APPEARANCE,URINE CLOUDY (CLEAR); BILIRUBIN,URINE 1+ (NEGATIVE); BLOOD, URINE 3+ (NEGATIVE); COLOR,URINE YELLOW (YELLOW); LEUKOCYTE ESTERASE ,URINE 2+ (NEGATIVE); NITRITE, URINE NEGATIVE (NEGATIVE); UGLUCOSE NEGATIVE (NEGATIVE)
[2022-10-26 17:30] LABS: RBC,URINE 11-20 (MOD) /HPF (0-5); WBC,URINE 16-25 (MOD) /HPF (0-5)
[2022-10-26] MEDS ORDERED: CEPH-588 PO (18:32)
[2022-10-26] MEDS ORDERED: IBUP-2213 PO (18:32)
[2022-10-26] MEDS ORDERED: PYR100 PO (18:32)
[2022-10-26 18:40] VITALS: BP 124/75
== END 2022-10-26 18:40 | disposition home or self-care (01) ==
LOC: MED 15:02
DX: R30.0 Dysuria (principal); J45.909 Unspecified asthma, uncomplicated
CPT/HCPCS: 81001; 81025; 87086; 99283

== ENCOUNTER 2023-01-04 11:22 | Emergency (ER) | payer OTHER ==
[~2023-01-04] VITALS: Ht 157.5 cm; Wt 80.7 kg
[~2023-01-04 11:22] MED LIST changes: +CEPH-588 PO; +PYR100 PO
[2023-01-04 11:27] VITALS: BP 120/81
[2023-01-04] MEDS ORDERED: KETOROLAC 30 MG/ML VIAL IM ONE ×2 (12:05→12:50)
[2023-01-04] MEDS ORDERED: IBUP-2213 PO (12:39)
[2023-01-04] MEDS ORDERED: IBUPROFEN 600 MG TAB PO ONE (12:45)
[2023-01-04 12:54] VITALS: BP 120/81
--- NOTE | 2023-01-04 12:54 | NUR ---
Patient discharged with v/s stable. Written and verbal after care instructions given and explained. Patient alert, oriented and verbalized understanding of instructions. Ambulatory with steady gait. All questions addressed prior to discharge. ID band removed. Patient advised to follow up with PMD. Rx of ibuprofen (sent) given. Patient educated on indication of medication including possible reaction and side effects. Opportunity to ask questions provided and answered. work note given
== END 2023-01-04 12:54 | disposition home or self-care (01) ==
LOC: MED 11:22
DX: S60.221A Contusion of right hand, initial encounter (principal); J45.909 Unspecified asthma, uncomplicated; Z79.1 Long term (current) use of non-steroidal anti-inflammatories (NSAID); Z79.2 Long term (current) use of antibiotics; Z79.899 Other long term (current) drug therapy; F31.9 Bipolar disorder, unspecified; W22.8XXA Striking against or struck by other objects, initial encounter; Y92.89 Other specified places as the place of occurrence of the external cause; Y93.89 Activity, other specified; Y99.8 Other external cause status
CPT/HCPCS: 73110; 73130; 96372; 99284; J1885

== ENCOUNTER 2023-06-04 16:48 | Emergency (ER) | payer OTHER ==
[~2023-06-04] VITALS: Ht 157.5 cm; Wt 78.0 kg
[~2023-06-04 16:48] MED LIST changes: +AMOX-1230 PO; +LOTC LEFT EAR
[2023-06-04 17:01] VITALS: BP 130/92; PULSE 65; RESP 16; TEMP 98.3; O2SAT 98
[2023-06-04 17:16] VITALS: O2SAT 98
[2023-06-04] MEDS ORDERED: IBUPROFEN 600 MG TAB PO ONE (18:30)
[2023-06-04 18:37] VITALS: O2SAT 98
[2023-06-04] MEDS ORDERED: IBUP-2213 PO (18:38)
[2023-06-04 18:39] VITALS: TEMP 98.3
[2023-06-04 19:25] VITALS: BP 126/76; PULSE 66; RESP 16; O2SAT 99
== END 2023-06-04 19:28 | disposition home or self-care (01) ==
LOC: MED 16:48
DX: S83.92XA Sprain of unspecified site of left knee, initial encounter (principal); J45.909 Unspecified asthma, uncomplicated; Z79.899 Other long term (current) drug therapy; Z79.1 Long term (current) use of non-steroidal anti-inflammatories (NSAID); Z79.2 Long term (current) use of antibiotics; X58.XXXA Exposure to other specified factors, initial encounter; Y92.89 Other specified places as the place of occurrence of the external cause; Y93.89 Activity, other specified; Y99.8 Other external cause status
CPT/HCPCS: 73562; 81025; 99283; Q0092

== ENCOUNTER 2024-07-05 10:29 | Emergency (ER) | payer MEDICAID, OTHER ==
[~2024-07-05] VITALS: Ht 157.5 cm; Wt 83.5 kg
[2024-07-05 10:33] VITALS: BP 139/91; PULSE 66; RESP 16; TEMP 98.6; O2SAT 97
[2024-07-05 12:12] LABS: APPEARANCE,URINE CLEAR (CLEAR); BILIRUBIN,URINE NEGATIVE (NEGATIVE); BLOOD, URINE NEGATIVE (NEGATIVE); COLOR,URINE YELLOW (YELLOW); LEUKOCYTE ESTERASE ,URINE NEGATIVE (NEGATIVE); NITRITE, URINE NEGATIVE (NEGATIVE); PROTEIN,URINE NEGATIVE (NEGATIVE); UGLUCOSE NEGATIVE (NEGATIVE); UROBILINOGEN,URINE 0.2 EU/dL (0.2 - 1)
[2024-07-05 14:16] VITALS: BP 110/74; PULSE 61; RESP 20; O2SAT 97
[2024-07-05] MEDS ORDERED: FLUC200T PO (14:21)
[2024-07-05] MEDS ORDERED: FLUC150T64 PO (14:38)
== END 2024-07-05 15:15 | disposition home or self-care (01) ==
LOC: MED 10:29
DX: N76.0 Acute vaginitis (principal); J45.909 Unspecified asthma, uncomplicated; Z79.899 Other long term (current) drug therapy
CPT/HCPCS: 81003; 81025; 87210; 99284